=== PATIENT | male | born 1995 | race Two or more races ===

== ENCOUNTER 2018-12-25 12:18 | Emergency (ER) | payer OTHER ==
--- NOTE | 2018-12-25 12:32 | EDM.PDOC ---
ED HPI GENERAL MEDICAL PROBLEM - General Chief Complaint: Lower Extremity Injury/Pain Stated Complaint: LT;LEG INJURY Time Seen by Provider: 12/25/18 12:22 - History of Present Illness INITIAL COMMENTS - FREE TEXT/NARRATIVE: HISTORY AND PHYSICAL: History of present illness: Patient's 23-year-old male presents with concern of acute left knee injury that occurred when he jumped from a height of about 4 feet injuring his left knee he presents now with pain and swelling with some bruising noted. He denies other trauma or concern Review of systems: As per history of present illness and below otherwise all systems reviewed and negative. Past medical history: As per history of present illness and as reviewed below otherwise noncontributory. Surgical history: As per history of present illness and as reviewed below otherwise noncontributory. Social history: No reported history of drug or alcohol abuse. Family history: As per history of present illness and as reviewed below otherwise noncontributory. Physical exam: HEENT: Atraumatic, normocephalic, pupils reactive, negative for conjunctival pallor or scleral icterus, mucous membranes moist, throat clear, neck supple, nontender, trachea midline. Lungs: Clear to auscultation, breath sounds equal bilaterally, chest nontender. Heart: S1S2, regular, negative for clicks, rubs, or JVD. Abdomen: Soft, nondistended, nontender. Negative for masses or hepatosplenomegaly. Negative for costovertebral tenderness. Pelvis: Stable nontender. Genitourinary: Deferred. Rectal: Deferred. Extremities: Patient don't have ecchymosis the region of the medial collateral ligament and somewhat inferior and posterior to the popliteal fossa there is a moderate to large effusion noted he has limited range of motion due to pain there is no gross deformity or instability CMS neurovascular exam is unremarkable Neuro: Awake, alert, oriented. Cranial nerves II through XII unremarkable. Cerebellum unremarkable. Motor and sensory unremarkable throughout. Exam nonfocal. Diagnostics: X-ray left knee Therapeutics: Knee Immobilizer crutches Impression: #1 acute left knee injury Definitive disposition and diagnosis as appropriate pending reevaluation and review of above. Review of Systems - Review of Systems Review Of Systems: Comprehensive ROS is negative, except as noted in HPI. ED EXAM, GENERAL - Physical Exam Exam: See Below (Dictation) Course - Orders/Labs/Meds Orders: Active Orders 24 hr Category Date Time Status Knee 3V Lt [CR] Stat Exams 12/25/18 12:25 Ordered Departure - Departure Time of Disposition: 12:31 Disposition: Home, Self-Care 01 Condition: Good Clinical Impression: Knee injury - Discharge Information Referrals: PCP,None [Primary Care Provider] - Additional Instructions: The following information is given to patients seen in the emergency department who are being discharged to home. This information is to outline your options for follow-up care. We provide all patients seen in our emergency department with a follow-up referral. The need for follow-up, as well as the timing and circumstances, are variable depending upon the specifics of your emergency department visit. If you don't have a primary care physician on staff, we will provide you with a referral. We always advise you to contact your personal physician following an emergency department visit to inform them of the circumstance of the visit and for follow-up with them and/or the need for any referrals to a consulting specialist. The emergency department will also refer you to a specialist when appropriate. This referral assures that you have the opportunity for followup care with a specialist. All of these measure are taken in an effort to provide you with optimal care, which includes your followup. Under all circumstances we always encourage you to contact your private physician who remains a resource for coordinating your care. When calling for followup care, please make the office aware that this follow-up is from your recent emergency room visit. If for any reason you are refused follow-up, please contact the [facility] emergency department at and asked to speak to the emergency department charge nurse. [facility] Professional [address], [address] [place] [address] Immobilizer crutches as directed hydrocodone as prescribed follow-up orthopedic surgery above return as needed as discussed - My Orders Last 24 Hours: My Active Orders 12/25/18 12:25 Knee 3V Lt [CR] Stat - Assessment/Plan Last 24 Hours: My Active Orders 12/25/18 12:25 Knee 3V Lt [CR] Stat
--- NOTE | 2018-12-25 12:53 | CR ---
Indication: Fall 1 day ago. Technique: Three views of the left knee were obtained. Comparison: None Findings: No acute fracture or subluxation is identified. The joint spaces are well maintained. Impression: No acute fracture. Dictated by Balbina Loza MD @ Dec 25 2018 12:52PM Signed by Dr. Balbina Loza @ Dec 25 2018 12:52PM
== END 2018-12-25 13:55 | disposition home or self-care (01) ==
LOC: MW.ED 12:18
DX: S89.92XA Unspecified injury of left lower leg, initial encounter (principal); X58.XXXA Exposure to other specified factors, initial encounter; Y93.39 Activity, other involving climbing, rappelling and jumping off
CPT/HCPCS: 73562-26-LT; 73562-LT; 99283; 99283-25

== ENCOUNTER 2019-02-15 10:20 | Day surgery (SDC) | payer OTHER ==
[~2019-02-15 10:20] MED LIST: Glycopyrrolate 0.2 MG/ML SDV ONE; Ketorolac 30 MG/ML SDV ONE; Lactated Ringers 1,000 ML IV SCH; Lidocaine 2% 5 ML SDV ONE; Midazolam 1 MG/ML 2 ML SDV ONE; Ondansetron 4 MG/2 ML SDV ONE; Propofol 200 MG/20 ML SDV ONE; Sodium Chloride 0.9% 20 ML ONE; ceFAZolin 1 GM Vial ONE; ceFAZolin 2 GM in Premix Bag 1 BAG IV SCH; fentaNYL 100 MCG/2 ML SDV IVPUSH PRN; fentaNYL 250 MCG/5 ML SDV ONE
--- NOTE | 2019-02-15 10:56 | PCM.PREANE ---
Preanesthetic Assessment - Anesthesia/Transfusion/Family Hx Anesthesia History: No Prior Anesthesia Family History of Anesthesia Reaction: No Transfusion History: No Prior Transfusion(s) - Review of Systems General: No Symptoms Pulmonary: No Symptoms Cardiovascular: No Symptoms Gastrointestinal: No Symptoms Neurological: No Symptoms Other: Reports: None - Physical Assessment NPO Status Date: 02/15/19 NPO Status Time: 07:00 Vital Signs: Last Vital Signs Temp 97.5 F 02/15/19 10:35 Pulse 97 02/15/19 10:35 Resp 20 02/15/19 10:35 BP 155/98 H 02/15/19 10:35 Pulse Ox 96 02/15/19 10:35 Height: 5 ft 9 in Weight: 90.718 kg ASA Class: 2 Mental Status: Alert & Oriented x3 Airway Class: Mallampati = 2 Dentition: Reports: Normal Dentition ROM/Head Extension: Full Lungs: Clear to Auscultation, Normal Respiratory Effort Cardiovascular: Regular Rate, Regular Rhythm - Allergies Allergies/Adverse Reactions: Allergies Allergy/AdvReac Type Severity Reaction Status Date / Time No Known Allergies Allergy Verified 02/10/19 07:19 - Anesthesia Plan Pre-Op Medication Ordered: None - Acknowledgements Anesthesia Type Planned: General Anesthesia Pt an Appropriate Candidate for the Planned Anesthesia: Yes Alternatives and Risks of Anesthesia Discussed w Pt/Guardian: Yes Pt/Guardian Understands and Agrees with Anesthesia Plan: Yes Additional Comments: PLAN: ga/lma PreAnesthesia Questionnaire - Past Health History Medical/Surgical History: Denies Medical/Surgical History - Past Surgical History Head Surgeries/Procedures: Reports: None - SUBSTANCE USE Smoking Status *Q: Never Smoker Recreational Drug Use History: No - HOME MEDS Home Medications: Home Meds traMADol HCl [Tramadol HCl] 50 mg PO ASDIRECTED PRN 01/30/19 [History] - CURRENT (IN HOUSE) MEDS Current Meds: Current Medications Fentanyl (Sublimaze) 50 mcg IVPUSH Q5M PRN PRN Reason: Pain Cefazolin Sodium/Dextrose 2 gm (/ Premix) 50 mls @ 100 mls/hr IV ONCALL VIKTORIA Lactated Ringer's (Ringers, Lactated) 1,000 mls @ 100 mls/hr IV ASDIRECTED VIKTORIA Last Admin: 02/15/19 10:40 Dose: 100 mls/hr Discontinued Medications Cefazolin Sodium (Ancef) Confirm Administered Dose 2 gm .ROUTE .STK-MED ONE Stop: 02/15/19 10:11 Fentanyl (Sublimaze) Confirm Administered Dose 250 mcg .ROUTE .ST-MED ONE Stop: 02/15/19 09:07 Glycopyrrolate (Robinul) Confirm Administered Dose 0.2 mg .ROUTE .STPlayrcart-MED ONE Stop: 02/15/19 09:07 Sodium Chloride (Normal Saline) Confirm Administered Dose 20 mls @ as directed .ROUTE .STPlayrcart-MED ONE Stop: 02/15/19 10:11 Ketorolac Tromethamine (Toradol) Confirm Administered Dose 30 mg .ROUTE .STPlayrcart- MED ONE Stop: 02/15/19 09:07 Lidocaine (Xylocaine-Mpf 2%) Confirm Administered Dose 5 ml .ROUTE .ST-MED ONE Stop: 02/15/19 09:07 Midazolam HCl (Versed 1 Mg/Ml) Confirm Administered Dose 2 mg .ROUTE .STPlayrcart-MED ONE Stop: 02/15/19 09:07 Ondansetron HCl (Zofran) Confirm Administered Dose 4 mg .ROUTE .ST-MED ONE Stop: 02/15/19 09:07 Propofol (Diprivan 20 Ml) Confirm Administered Dose 200 mg .ROUTE .STK-MED ONE Stop: 02/15/19 09:07
[2019-02-15] MEDS ORDERED: fentaNYL 250 MCG/5 ML SDV ONE (13:02)
--- NOTE | 2019-02-15 14:38 | PCM.OPNOTE ---
- General Post-Op/Procedure Note Date of Surgery/Procedure: 02/15/19 Operative Procedure(s): left acl reconstruction. lateral meniscus partial meniscectomy Pre Op Diagnosis: left acl tear. possible medial meniscus tear Post-Op Diagnosis: left acl tear. lateral meniscus tear Anesthesia Technique: General ET Tube Primary Surgeon: Bishop Ashley Anesthesia Provider: Jay Montero Elevator Dispatcher: Bren Charles EBL in mLs: 25 Complications: None Condition: Good
--- NOTE | 2019-02-15 14:52 | PCM.POSTAN ---
POST ANESTHESIA ASSESSMENT - MENTAL STATUS Mental Status: Alert - VITAL SIGNS Vital Signs: Last Vital Signs Temp 36.4 C 02/15/19 10:35 Pulse 112 H 02/15/19 14:44 Resp 18 02/15/19 14:44 BP 134/84 02/15/19 14:44 Pulse Ox 96 02/15/19 14:44 - RESPIRATORY Respiratory Status: Respiratory Rate WNL - CARDIOVASCULAR CV Status: Pulse Rate WNL - GASTROINTESTINAL GI Status: No Symptoms - POST OP HYDRATION Hydration Status: Adequate & Stable
[2019-02-15] MEDS ORDERED: Acetaminophen/oxyCODONE 325-5 MG Tab PO ONE (15:18)
--- NOTE | 2019-02-15 15:45 | PCM48HPAN ---
Post Anesthesia Note - EVALUATION WITHIN 48HRS OF ANESTHETIC Vital Signs in Normal Range: Yes Patient Participated in Evaluation: Yes Respiratory Function Stable: Yes Airway Patent: Yes Cardiovascular Function Stable: Yes Hydration Status Stable: Yes Pain Control Satisfactory: Yes Nausea and Vomiting Control Satisfactory: Yes Mental Status Recovered: Yes Vital Signs: Last Vital Signs Temp 36.2 C 02/15/19 14:49 Pulse 106 H 02/15/19 15:19 Resp 18 02/15/19 15:19 BP 139/89 02/15/19 15:19 Pulse Ox 96 02/15/19 15:19
--- NOTE | 2019-02-16 08:55 | OR ---
SURGEON: Bsihop Ashley DATE OF PROCEDURE: 02/15/2019 PREOPERATIVE DIAGNOSIS: Left anterior cruciate ligament tear. POSTOPERATIVE DIAGNOSES: Left anterior cruciate ligament tear and radial lateral meniscus tear. PRIMARY SURGEON: Bishop Ashley DO ROLL TENDER: BERENICE Jones ROLE OF ROLL TENDER: Nurse practitioner, BERENICE Jones, played an essential role in assisting in this case, helping to position the patient, retract structures as needed, as well as suturing and cutting sutures as indicated. Her presence improved patient's safety and decreased operative time. ANESTHESIA: Jay Quintanilla CRNA, general endotracheal intubation. FLUIDS: Lactated Ringer's solution. ESTIMATED BLOOD LOSS: 25 mL. COMPLICATION: None. SPECIMEN: None. DISCHARGE DISPOSITION: Stable to PACU. HISTORY AND INDICATIONS FOR THE PROCEDURE: The patient was seen preoperatively in the clinic. He had been doing some jumping and injured his left knee. He had failed nonoperative treatment. Preoperative imaging confirmed the above-mentioned diagnosis. Risks and benefits of the procedure were explained to the patient. Informed consent was obtained. DETAILS OF PROCEDURE: The patient was seen preoperatively by myself and the Anesthesia staff in the preop holding area, where the operative site was marked. He was brought to the operative suite by Anesthesia staff, where general anesthesia was administered. The right lower extremity was placed into a stirrup. The left lower extremity had a well-padded tourniquet placed on the thigh and was placed into a knee scales. All extremities were found to be well padded. The left lower extremity was then prepped and draped in a sterile manner. Time-out was called identifying the correct patient, the correct procedure, the correct site, and that antibiotics had been begun within the appropriate period of time. The left lower extremity was exsanguinated. Tourniquet was raised to 250 mmHg. Lateral portal was then made. The patellofemoral joint was inspected, as well as the medial and lateral gutters, where no abnormality was found. There was considerable synovitis present within the medial and lateral compartments. Considerable amount of fat pad was removed by placing an anteromedial portal at the medial border of the patella. After considerable amount of fat and synovium was removed, we then saw that the stump was present, removed the stump, and debrided it. We then debrided the notch and then used a pati to perform a notchplasty. At this point in time, we removed more of the soft tissue and remaining bone from the notch using the shaver. I inspected the medial and lateral meniscus. There was a radial tear of the lateral meniscus, which was debrided using the shaver, and an ablation unit was then used. This cleaned up the tear quite nicely. No abnormalities were found on the medial meniscus. I then prepared my graft, which measured 9.5 to 10. We then used a 2-mm back wall guide and then drilled the flexible wire through the lateral cortex. I then over-reamed a 25-mm with a 10-mm femoral reamer and then continued that through the cortex with a 4.5-mm reamer, after measuring the total depth to be about 40 mm. After this had been completed, we then passed a passing suture out through the lateral cortex, pinned it, and then snapped this in place. After that had been accomplished, we focussed on tibial tunnel preparation. An incision was made 3 fingerbreadths distal to the joint line, almost to the medial border of the tibia. I then carried that down to bone. We then used a 55-degree ACL guide and placed it in the middle of the stump and then drilled the guidepin and then reamed to 9.5 mm. I then marked my graft at 40 mm from the button and then the graft at 25 mm. I then used my pituitaries to pass the passing suture out through the tibial tunnel. I then placed the graft into the [employer] device from [employer]. I then pulled it through all the way until my button had gone to the far cortex and then flipped it and then made sure that was secure. After this had been accomplished, we then tensioned the graft sequentially until it had reached the appropriate depth of just over 25 mm. I then cycled the knee and then used the interference pin at approximately 30 degrees of flexion to hold the tibial portion of the graft in place in the tibial tunnel. I then removed my guidewire for the screw and then performed an anterior drawer test, which had a hard stop. We then removed our instruments from the knee and then closed our incisions with juanita, followed by Betadine-soaked Adaptic, followed by fluffs and Medipore tape. The patient was allowed to awaken from general anesthesia and was taken to the PACU in stable condition. [id number] / MODL /[id number]
== END 2019-02-15 15:55 | disposition home or self-care (01) ==
LOC: MW.SDS 10:20
PROVIDERS: ATTEND Orthopaedic Surgery
DX: S83.512A Sprain of anterior cruciate ligament of left knee, initial encounter (principal); S83.282A Other tear of lateral meniscus, current injury, left knee, initial encounter; Z79.891 Long term (current) use of opiate analgesic
CPT/HCPCS: 01400; A9270-GY; C1713; C1762; C1776; J0690; J1885; J2001; J2250; J2405; J2704; J3010; J3490; J7120